=== PATIENT | male | born 1975 | race Caucasian/White ===

== ENCOUNTER 2021-09-18 15:24 | Emergency (ER) | payer MEDICAID, SELFPAY ==
[2021-09-18 15:26] VITALS: BP 103/89; PULSE 75; RESP 16; TEMP 36.3; O2SAT 99; BMI 26.6
[2021-09-18 15:34] VITALS: BP 115/81; PULSE 67; RESP 16; TEMP 36.6; O2SAT 96
[2021-09-18] MEDS: Ondansetron 4 MG/2 ML Vial IV (15:51)
[2021-09-18] MEDS: 0.9% Normal Saline 1,000 ML 1000 ML IV ×2 (15:51→17:06)
--- NOTE | 2021-09-18 15:51 | EX.ED.DYSGE1 ---
HPI History of Present Illness Chief Complaint: Flank Pain Informant: patient and spouse/S.O. Onset/Context/Timing Onset: Yesterday Context: Gradual Onset Timing: Continuous Current Severity: Moderate Worsened by: nothing Relieved by: nothing Associated Symptoms Associated Symptoms: Fevers, coughs, body aches especially B low back pain, N/V/D Narrative Narrative: Patient has 2 days of the above symptoms. It came on gradually. He said he is not eating or drinking much. He is concerned because he is not eating or drinking much and he is having low back pain. He is not vaccinated for COVID and did have a positive home test. Denies any history of heart or lung disease, but he is a smoker. Denies any history of liver or kidney disease. Denies any history of venous thromboembolism. Denies any history of immune compromise or alcoholism. No diabetes. Prior similar symptoms: No Recent Illness/Hospitalization: No PFSH PFSH Medical History no medical history no medical history Home Medications nirmatrelvir 150 mg-ritonavir 100 mg tablets in a dose pack (EUA) (Paxlovid) See Rx Instructions PO .COMPLEX #1 dose 09/18/21 [Rx Last Taken Unknown] nirmatrelvir 300 mg (150 mg x2)-ritonavir 100 mg tablet,dose pack(EUA) (Paxlovid) See Rx Instructions PO .COMPLEX #30 tabs 09/18/21 [Rx Last Taken Unknown] Allergy/AdvReac Type Severity Reaction Status Date / Time No Known Allergies Allergy Verified 09/18/21 15:40 Family History no significant family his no significant family history Surgical History no surgical history no surgical history (Right hand surgery remotely) Social History Smoking Status: Current every day smoker tobacco type: cigarettes ROS ROS ED Review of Systems ROS Unobtainable: Denies due to encephalopathy Constitutional Constitutional ED: Reports fever(s) Eyes Eyes: Denies blurry vision ENT ENT ED: Denies ear pain Cardiovascular Cardiovascular: Denies chest pain Respiratory/Chest Respiratory/Chest: Reports cough; Denies dyspnea Gastrointestinal Gastrointestinal: Reports diarrhea, nausea and vomiting; Denies abdominal pain, constipation or melena Genitourinary Genitourinary ED: Denies dysuria Musculoskeletal Musculoskeletal: Reports arthralgias, back pain and myalgias; Denies neck pain Integumentary Denies abscess Neurologic Neurologic: Denies headache(s) Psychiatric Psychiatric: Denies anxiety Endocrine Endocrinology: Denies cold intolerance Hematologic/Lymphatic Hematologic/Lymphatic: Denies systems reviewed and no addt'l complaints, except as documented EXAM Physical Exam Const Vital Signs: 09/18/21 15:26 09/18/21 15:34 09/18/21 15:34 Temperature 97.4 F L 97.8 F Temperature Source Temporal Oral Pulse Rate 75 67 Respiratory Rate 16 16 Respiratory Effort Normal Non-Labored Respiratory Pattern Normal Blood Pressure 103/89 H 115/81 H Blood Pressure Mean 93 92 Pulse Ox 99 96 Oxygen Delivery Method Room Air Room Air Positive well nourished and well developed General Appearance ED: well developed HEENT Reports moist mucous membranes Eyes EOMs intact bilaterally Resp normal respiratory effort Cardio regular rate Back/Spine no CVA tenderness Neuro oriented x3 Sensorium / Orientation: alert; Negative for orientation impaired Psych mental status grossly normal Skin no rashes or lesions noted MDM MDM MDM Narrative Medical decision making narrative: Initial creatinine is slightly elevated. He was treated with fluids and it is trending down. I spoke with the hospitalist to see if we would offer anything different as an inpatient. He said he will see this sometimes with COVID-19 and they would not change anything in the hospital. They would discharge him from this point. They advised oral fluids. And follow-up with primary care. He was given a referral. He was given a work note. He was given a prescription for Paxil livid with renal dosing. Return for any new or worsening issues. Chest x-ray was reviewed by the radiologist and myself and showed no acute abnormalities. Impression #1 COVID-19 Impression #2 elevated creatinine Disposition is discharged home. Lab Data Attestation: I reviewed the patient's lab results. Labs: Laboratory Results - last 24 hr 09/18/21 09/18/21 09/18/21 15:50 15:50 16:44 WBC 4.7 RBC 5.14 Hgb 15.2 Hct 44.0 MCV 85.6 MCH 29.6 MCHC 34.5 RDW Std Deviation 40.6 RDW Coeff of Gaetano 12.9 Plt Count 194 MPV 9.0 Immature Gran % (Auto) 0.200 Neut % (Auto) 66.2 Lymph % (Auto) 25.5 Mckenzie % (Auto) 7.9 Eos % (Auto) 0.0 Baso % (Auto) 0.2 Absolute Neuts (auto) 3.1 Absolute Lymphs (auto) 1.20 Nucleated RBC % 0 Sodium 134 L 136 Potassium 4.1 3.9 Chloride 101 104 Carbon Dioxide 27.0 27.0 Anion Gap 6 5 BUN 22 H 21 H Creatinine 1.45 H 1.37 H Estim Creat Clear Calc 62.90 66.57 Est GFR (MDRD) Af Amer 68 72 Est GFR (MDRD) Non-Af 56 L 60 BUN/Creatinine Ratio 15.2 15.3 Glucose 85 79 Calcium 8.9 8.1 L Radiography Diagnostic Testing: Clinical Impression(s) from Imaging Studies Chest X-Ray 09/18/21 16:35 IMPRESSION: No acute radiographic abnormalities. Electronically Signed: Kody Paul MD at 17:40 EDT , Discharge Plan Triage Chief Complaint: Flank Pain ED Provider: Flash Dotson Dx/Rx/DC Orders Instructions: Coronavirus Disease 2019 (COVID-19): Caring for Yourself or Others Prescriptions: New Paxlovid (EUA) 300 mg (150 mg x 2)-100 mg tablets,dose pack See Rx Instructions .ROUTE .COMPLEX Qty: 30 0RF Rx Instructions: take TWO 150 mg tablets of nirmatrelvir with ONE 100 mg tablet of ritonavir twice daily for 5 days Paxlovid (EUA) 150-100 mg tablets,dose pack See Rx Instructions .ROUTE .COMPLEX Qty: 1 0RF Rx Instructions: take ONE 150 mg tablet of nirmatrelvir with ONE 100 mg tablet of ritonavir twice daily for 5 days Primary Care Provider: Care Physician,No Primary Disposition Disposition: Home, Self Care
[2021-09-18] MEDS: Ketorolac 15 MG/ML Vial IV (15:54)
[2021-09-18 16:08] LABS: Absolute Neutrophil Count 3.1 X10^3/uL (2.0-7.7); Basophil# 0.01 X10^3/uL; Basophil% 0.2 % (0-1); Hemoglobin 15.2 g/dL (13.0-16.5); Lymphocyte % 25.5 % (19-41); Mean Corp Hgb Conc 34.5 g/dL (32-36); Mean Corpuscular Hgb 29.6 pg (27.0-32.0); Mean Corpuscular Volume 85.6 fL (80-94); Monocyte# 0.37 X10^3/uL; Monocyte% 7.9 % (0-10); NRBC Flagged by Analyzer 0 % (0-5); Neutrophil # 3.11 X10^3/uL (2.7-7.7); Neutrophil % 66.2 % (47-70); Platelet Count 194 K/mm3 (150-450); RBC Distribution Width CV 12.9 % (11.6-14.6); RBC Distribution Width SD 40.6 fl (35.1-43.9); Red Blood Count 5.14 M/mm3 (4.6-6.2); White Blood Count 4.7 K/mm3 (4.4-11.0)
[2021-09-18 16:18] LABS: Anion Gap 6 (5-15); BUN 22 mg/dL (7-18); BUN/Creat Ratio 15.2 RATIO (10-20); Calcium,Total 8.9 mg/dL (8.5-10.1); Chloride 101 mmol/L (98-107); Creatinine, Serum 1.45 mg/dL (0.70-1.30); EST Glomerular Filtration Rate 56 mL/min (>60); Est Glom Filt Rate - Afr Amer 68 mL/min (>60); Glucose 85 mg/dL (74-106); Potassium 4.1 mmol/L (3.5-5.1); Sodium Level 134 mmol/L (136-145)
--- NOTE | 2021-09-18 16:35 | RAD_ITS ---
INDICATION: cough, covid EXAMINATION/TECHNIQUE: X-RAY - XR Chest 1 View COMPARISON: None. FINDINGS: The lungs are clear. The cardiomediastinal silhouette is unremarkable. No pleural effusion or pneumothorax. No acute osseous abnormalities. RAD/Chest 1 View (Portable) IMPRESSION: No acute radiographic abnormalities. Electronically Signed: Kody Paul MD at 17:40 EDT ,
[2021-09-18 17:14] LABS: Anion Gap 5 (5-15); BUN 21 mg/dL (7-18); BUN/Creat Ratio 15.3 RATIO (10-20); Calcium,Total 8.1 mg/dL (8.5-10.1); Chloride 104 mmol/L (98-107); Creatinine, Serum 1.37 mg/dL (0.70-1.30); EST Glomerular Filtration Rate 60 mL/min (>60); Est Glom Filt Rate - Afr Amer 72 mL/min (>60); Estimated Creatinine Clearance 66.57 ml/min; Glucose 79 mg/dL (74-106); Potassium 3.9 mmol/L (3.5-5.1); Sodium Level 136 mmol/L (136-145)
[2021-09-18 18:17] VITALS: BP 132/76; PULSE 88; RESP 16; O2SAT 98
== END 2021-09-18 18:17 | disposition home or self-care (01) ==
PROVIDERS: Emergency Provider Emergency Medicine; Visit Provider Emergency Medicine
DX: U07.1 COVID-19 (principal); R79.89 Other specified abnormal findings of blood chemistry; R10.9 Unspecified abdominal pain; Z28.310 Unvaccinated for COVID-19; F17.210 Nicotine dependence, cigarettes, uncomplicated
CPT/HCPCS: 71045; 80048; 85025; 87811; 96361; 96374; 96375; 99283; J7030; A4216; J2405